=== PATIENT | female | born 1945 | race Hispanic/Latino ===

== ENCOUNTER 2018-03-12 06:36 | Day surgery (SDC) | payer MEDICARE, OTHER ==
[~2018-03-12 06:36] MED LIST: Cyclopentolate 1% Opth (2 ml) OS SCH; Ketorolac Tromethamine 0.5% Opth Soln (3 ml) OS SCH; Lactated Ringer's 500 ML IV ONE; Ofloxacin 0.3% Ophth Soln OS SCH; Tropicamide 0.5% Opht Sol OS SCH
[2018-03-12] MEDS ORDERED: Phenylephrine 2.5% Opht Soln OS SCH (07:30)
[2018-03-12] MEDS ORDERED: Tobramycin/Dexamethasone OPHT OINT ONE (07:40)
[2018-03-12] MEDS ORDERED: Tobramycin/Dexamethasone (Tobradex) Opth Sol (2.5 ml) ONE (07:40)
[2018-03-12] MEDS ORDERED: Lidocaine 2% MPF (5 ml) Inj ONE ×2 (07:40→07:55)
[2018-03-12] MEDS ORDERED: Tetracaine 0.5% Ophth (OR ONLY) ONE (07:40)
[2018-03-12] MEDS ORDERED: Carbachol 0.01% IO ONE (07:40)
[2018-03-12] MEDS ORDERED: Povidone Iodine Ophthalmic 5% Soln ONE (07:40)
[2018-03-12] MEDS ORDERED: Chondroitin/Hyaluronate Opth Syringe KIT (0.55 ml-0.5 ml) IO ONE (07:41)
[2018-03-12] MEDS ORDERED: Hyaluronidase Human, Recombi 150 U/ML VIAL ONE (07:41)
[2018-03-12] MEDS ORDERED: Propofol 10 mg/ml Inj (20 ML) ONE (08:55)
[2018-03-12] MEDS ORDERED: acetaZOLAMIDE 500 mg SR Cap PO ONE (09:35)
[2018-03-12 10:08] VITALS: O2SAT 100
[2018-03-12 10:11] VITALS: RESP 13
[2018-03-12 10:47] VITALS: PULSE 86; TEMP 98.7
[2018-03-12 11:55] VITALS: BP 135/79
--- NOTE | 2018-03-16 21:31 | OP ---
PROCEDURE DATE: 03/12/2018 PREOPERATIVE DIAGNOSES: Mature cataract, left eye; posterior and anterior synechiae, left eye. OPERATIVE PROCEDURE: Cataract extraction with implant and use of trypan blue dye, lysis of posterior and anterior synechiae and pupillary stretching. COMPLICATIONS: None. ANESTHESIA: General. DESCRIPTION OF PROCEDURE: The patient was brought to the operating room and general anesthesia was easily induced. The patient was then prepped and draped in the usual sterile fashion for surgery of the left eye. A lid speculum was placed and a sideport incision was created. Trypan blue dye was placed into the eye and viscoelastic was then used to fill the anterior chamber. A primary incision was made using a slit blade temporally and additional viscoelastic was placed into the eye. The cyclodialysis spatula was used to lyse the posterior synechiae. Anterior synechiae were also broken using a combination of the viscoelastic and the cyclodialysis spatula. The pupil was only noted to be approximately 4 mm; therefore, two Kuglen hooks were used to stretch the pupils. Additional viscoelastic was placed into the eye and pupil was noted to be of an adequate size to proceed with surgery. Capsulorhexis forceps was used to make a capsulorhexis. Hydrodissection was performed. Phacoemulsification of the nucleus was performed with ease and cortical cleanup was achieved without difficulty. The capsular bag was refilled using viscoelastic and a posterior chamber lens was placed into the capsular bag and easily centered. Viscoelastic was removed from the eye. Miochol was instilled causing good symmetric pupillary constriction. The sideport wound was hydrated and the lid speculum was removed. A TobraDex-soaked collagen shield was placed over the eye. TobraDex ointment was placed onto the eye. Patch and shield were placed over the eye. The patient was taken from the operating room in excellent condition. Ramon Aranda MD
== END 2018-03-12 12:03 ==
LOC: C.SDS 06:36
PROVIDERS: ATTEND Ophthalmology
DX: H25.89 Other age-related cataract (principal); H26.9 Unspecified cataract
CPT/HCPCS: 66984; 82948; J2060; J2704; J3470; J7120; V2632

== ENCOUNTER 2018-05-07 07:24 | Day surgery (SDC) | payer MEDICARE, OTHER ==
[~2018-05-07 07:24] MED LIST changes: +Ciprofloxacin 0.3% OPTH SOLN OD SCH; +Cyclopentolate 1% Opth (2 ml) OD SCH; -Cyclopentolate 1% Opth (2 ml) OS SCH; +Ketorolac Tromethamine 0.5% Opth Soln (3 ml) OD SCH; -Ketorolac Tromethamine 0.5% Opth Soln (3 ml) OS SCH; -Ofloxacin 0.3% Ophth Soln OS SCH; +Phenylephrine 2.5% Opht Soln OD SCH; +Tropicamide 0.5% Opht Sol OD SCH; -Tropicamide 0.5% Opht Sol OS SCH
[2018-05-07] MEDS ORDERED: Povidone Iodine Ophthalmic 5% Soln ONE (07:36)
[2018-05-07] MEDS ORDERED: Tetracaine 0.5% Ophth (OR ONLY) ONE (07:37)
[2018-05-07] MEDS ORDERED: Carbachol 0.01% IO ONE (07:37)
[2018-05-07] MEDS ORDERED: Tobramycin/Dexamethasone (Tobradex) Opth Sol (2.5 ml) ONE (07:37)
[2018-05-07] MEDS ORDERED: Lidocaine 2% MPF (5 ml) Inj ONE (07:37)
[2018-05-07] MEDS ORDERED: Tobramycin/Dexamethasone OPHT OINT ONE (07:37)
[2018-05-07] MEDS ORDERED: Chondroitin/Hyaluronate Opth Syringe KIT (0.55 ml-0.5 ml) IO ONE (07:38)
[2018-05-07] MEDS ORDERED: Hyaluronidase Human, Recombi 150 U/ML VIAL ONE (07:38)
[2018-05-07] MEDS ORDERED: Tropicamide 1% Opht SOLUTION OD STA (08:00)
[2018-05-07] MEDS ORDERED: Midazolam 2 MG/2 ML VIAL ONE (10:15)
[2018-05-07] MEDS ORDERED: Propofol 10 mg/ml Inj (20 ML) ONE (10:16)
[2018-05-07] MEDS ORDERED: ePHEDrine 50 mg/ml Inj ONE (10:21)
[2018-05-07 11:19] VITALS: O2SAT 100
[2018-05-07 12:33] VITALS: PULSE 100; RESP 18
[2018-05-07 13:07] VITALS: BP 116/55; TEMP 97.7
--- NOTE | 2018-05-10 04:44 | OP ---
PROCEDURE DATE: 05/07/2018 PREOPERATIVE DIAGNOSIS: Mature cataract, right eye; anterior and posterior synechiae, right eye. POSTOPERATIVE DIAGNOSIS: Mature cataract, right eye; anterior and posterior synechiae, right eye. ANESTHESIA: General. PROCEDURE: Cataract extraction with implant and use of trypan blue dye with lysis of posterior and anterior synechiae and pupillary stretching. COMPLICATIONS: None. DESCRIPTION OF PROCEDURE: The operative report is as follows: The patient was brought to the operating room and general anesthesia was easily induced. The patient was prepped and draped in the usual sterile fashion for surgery of the right eye. A lid speculum was placed into the right eye and a sideport incision was created. Trypan blue dye was used to stain the anterior capsule. Viscoelastic was used to fill the anterior chamber. A 5-mm incision was made and cyclodialysis spatula was used to lyse the anterior and posterior synechiae. Two Kuglen hooks were then used to stretch the pupil to approximately 6.5 mm. Additional viscoelastic was placed. An anterior capsulorrhexis was then easily performed. Hydrodissection of the nucleus was achieved without difficulty. Phacoemulsification of the nucleus was performed and cortical cleanup was achieved without difficulty. The capsular bag was refilled using viscoelastic and a posterior chamber lens was placed into the capsular bag and easily centered. Viscoelastic was aspirated from the eye, and Miochol was instilled with good symmetric pupillary constriction. The primary wound was watertight as well as the sideport incision. TobraDex soaked collagen shield was placed over the eye. The lid speculum was removed. TobraDex ointment was placed onto the eye. Patch and shield were placed over the eye, and the patient was easily awakened from general anesthesia and taken to the recovery room in good condition. Ramon Aranda MD
== END 2018-05-07 13:00 | disposition home or self-care (01) ==
LOC: C.SDS 07:24 → EDSEX 10:20 → C.SDS 13:00
PROVIDERS: ATTEND Ophthalmology
DX: H25.89 Other age-related cataract (principal); H21.541 Posterior synechiae (iris), right eye
CPT/HCPCS: 65875; 66984; 82948; J2001; J2250; J2704; J3010; J3470; V2632